=== PATIENT | female | born 1980 | race Caucasian/White ===

== ENCOUNTER 2017-07-15 18:20 | Emergency (ER) | payer BC ==
--- NOTE | 2017-07-15 18:48 | Emergency Department Record ---
History of Present Illness - General Chief Complaint: Chest Pain Stated Complaint: CHEST PAIN FOR A WEEK Time Seen by Provider: 07/15/17 18:42 Source: Patient Mode of Arrival: Ambulatory Limitations: No limitations - History of Present Illness Initial Comments: 36 yo female presents to ED for evaluation of chest pain x 1 week that has been constant. Patient went to her PCP to receive an antibiotic for a dental infection and described her chest pain symptoms, was told to come to ED immediately. Patient denies worsening of her symptoms with exertion, denies fevers, chills, or cough symptoms. Patient denies history of DVT, but does report a history of Lupus and family history of DVT. Patient reports that she went to her chiropractor earlier ion the week and was told her symptoms were not musculoskeletal in nature. MD Complaint: Chest pain Onset/Timin -: Week(s) Pain Location: Substernal Pain Radiation: Neck Severity: Moderate Severity scale (1-10): 6 Quality: Aching Consistency: Constant Improves With: Nothing Worsens With: Nothing Treatments Prior to Arrival: None - Related Data Previous Rx's Medication Instructions Recorded Clindamycin HCl 300 mg PO Q6H #28 capsule 07/15/17 Allergies Allergy/AdvReac Type Severity Reaction Status Date / Time Penicillins Allergy Severe ANAPHYLAXIS Verified 07/15/17 18:41 tramadol HCl [From [facility]] Allergy Intermediate HIVES Verified 07/15/17 18:41 Travel Screening - Travel/Exposure Within Last 30 Days Have you traveled within the last 30 days?: No Review of Systems Constitutional: Denies: Chills, Fever, Malaise, Night sweats Eyes: Denies: Eye discharge, Eye pain ENT: Denies: Congestion, Ear pain, Epistaxis Respiratory: Denies: Cough, Dyspnea Cardiovascular: Reports: Chest pain. Denies: Dyspnea on exertion, Palpitations , Paroxysmal nocturnal dyspnea Endocrine: Denies: Fatigue Gastrointestinal: Denies: Abdominal pain, Constipation, Nausea, Vomiting Genitourinary: Denies: Incontinence, Retention Musculoskeletal: Denies: Arthralgia, Back pain, Gout, Joint swelling Skin: Denies: Bruising, Change in color Neurological: Denies: Abnormal gait, Confusion, Headache, Tingling Psychiatric: Denies: Anxiety Hematological/Lymphatic: Denies: Anemia, Blood Clots Past Medical History - SOCIAL HISTORY Smoking Status: Never smoker Alcohol Use: None Drug Use: None - RESPIRATORY Hx Respiratory Disorders: No - CARDIOVASCULAR Hx Cardio Disorders: No - NEURO Hx Neuro Disorders: No - GI Hx GI Disorders: No - Hx Genitourinary Disorders: No - ENDOCRINE Hx Endocrine Disorders: No - MUSCULOSKELETAL Hx Musculoskeletal Disorders: Yes Hx Fibromyalgia: Yes - PSYCH Hx Psych Problems: No - HEMATOLOGY/ONCOLOGY Hx Hematology/Oncology Disorders: Yes Comment:: Lupus Family Medical History Any Significant Family History?: Yes Hx Cancer: Father, Mother, Grandparents Physical Exam - General General Appearance: Alert, Oriented x3, Cooperative, No acute distress Limitations: No limitations - Head Head exam: Atraumatic, Normocephalic, Normal inspection Head exam detail: negative: Abrasion, Contusion, Pacheco's sign, General tenderness, Hematoma, Laceration - Eye Eye exam: Normal appearance. negative: Conjunctival injection, Periorbital swelling, Periorbital tenderness, Scleral icterus - ENT Ear exam: negative: Auricular hematoma, Auricular trauma Nasal Exam: negative: Active bleeding, Discharge, Dried blood, Foreign body Mouth exam: negative: Drooling, Laceration, Muffled voice, Tongue elevation - Neck Neck exam: Normal inspection. negative: Tenderness, Thyromegaly - Respiratory Respiratory exam: Normal lung sounds bilaterally. negative: Respiratory distress, Rhonchi, Stridor, Wheezes - Cardiovascular Cardiovascular Exam: Regular rate, Normal rhythm, Normal heart sounds - GI/Abdominal GI/Abdominal exam: Soft. negative: Organomegaly, Rebound, Rigid, Tenderness - Rectal Rectal exam: Deferred - exam: Deferred - Extremities Extremities exam: Normal inspection. negative: Calf tenderness, Pedal edema, Tenderness - Back Back exam: Denies: CVA tenderness (R), CVA tenderness (L) - Neurological Neurological exam: Alert, Normal gait, Oriented X3 - Psychiatric Psychiatric exam: Normal affect, Normal mood - Skin Skin exam: Normal color. negative: Abrasion Type of lesion: negative: abrasion Course Vital Signs 07/15/17 18:35 Temperature 98.3 F Pulse Rate 84 Respiratory 18 Rate Blood Pressure 135/95 Pulse Ox 99 - Reevaluation(s) Reevaluation #1: 07/15/17 18:51 EKG: NSR 70 Normal axis, normal intervals No acute ST-T wave changes Reevaluation #2: 07/15/17 19:52 Labs reviewed, D-Dimer 0.53, labs are otherwise grossly unremarkable for an acute process. CTA ordered. Patient was updated on all results and is resting comfortably at this time. Reevaluation #3: 07/15/17 20:13 CTA Chest: Negative for PE/Dissection, reactive lymph nodes present. Reevaluation #4: 07/15/17 22:33 Repeat Troponin has resulted as negative. Patient was updated on all results, has been resting comfortably throughout her ED stay and appears stable for discharge at this time with Clindamycin for her dental infection. Medical Decision Making - Lab Data Result diagrams: 07/15/17 18:57 07/15/17 18:57 Disposition Disposition: Discharge Clinical Impression: Dental infection Chest pain Qualifiers: Chest pain type: unspecified Qualified Code(s): R07.9 - Chest pain, unspecified Disposition: Home, Self-Care Condition: (2) Stable Instructions: Chest Pain (ED) Additional Instructions: Return to ED if your symptoms worsen or if you have any concerns. Clindamycin as directed. Follow-up with your family doctor in 1-3 days as directed. Prescriptions: Clindamycin HCl 300 mg PO Q6H #28 capsule Forms: Patient Portal Access Time of Disposition: 22:34 Quality - Quality Measures Quality Measures: N/A - Blood Pressure Screening Does Patient Have Any of the Following: No Blood Pressure Classification: Hypertensive Reading Systolic Measurement: 135 Diastolic Measurement: 95 Screening for High Blood Pressure: < First Hypertensive BP, F/U Documented > [ G8950] First Hypertensive Follow-up Interventions: Referral to alternative/primary care provider.
[2017-07-15 19:04] LABS: HEMATOCRIT 41.2 % (35.0-47.0); HEMOGLOBIN 14.2 gm/dl (11.6-16.0); MEAN CELL VOLUME 81.7 fl (81-97); MEAN CORPUSCULAR HEMOGLOBIN 28.2 pg (27-33); MEAN CORPUSCULAR HGB CONC 34.5 g/dl (32-36); MEAN PLATELET VOLUME 10.9 fl (7.4-10.4); PLATELET COUNT 236 K/uL (130-400); RED BLOOD COUNT 5.04 M/uL (3.80-5.40); RED CELL DISTRIBUTION WIDTH 12.8 % (11.5-14.5); WHITE BLOOD COUNT W/O DIFF 7.5 K/uL (4.2-12.2)
[2017-07-15 19:14] LABS: PLATELET ESTIMATE NORMAL (NORMAL)
[2017-07-15 19:24] LABS: ALB/GLOB RATIO 1.4 (1.1-1.8); ALBUMIN 4.4 g/dL (4.0-5.0); ALKALINE PHOSPHATASE 60 U/L (35-104); ALT/SGPT 18 U/L (<33); AST/SGOT 19 U/L (10.0-35.0); BLOOD UREA NITROGEN 12 mg/dL (6-20); CREATININE 0.7 mg/dL (0.5-0.9); EST GLOMERULAR FILTRATION RATE > 60 mL/min; GLUCOSE,RANDOM 91 mg/dL (74-109); TOTAL PROTEIN 7.5 g/dL (6.6-8.7)
[2017-07-15 19:43] LABS: CKMB < 1.0 ng/mL (<3.77)
[2017-07-15] MEDS ORDERED: CLINDAMYCIN 150 MG CAP PO ONE (22:02)
--- NOTE | 2017-07-16 12:22 | RADIOLOGY REPORT ---
EXAM: CHEST, TWO VIEWS HISTORY: ACUTE GENERALIZED CHEST PAIN. TECHNIQUE: Two views of the chest were obtained. Comparison: Chest x-ray 01/20/17. FINDINGS: The lungs are clear. The cardiac silhouette, diaphragm, and osseous structures are unremarkable for age. IMPRESSION: NEGATIVE CHEST EXAMINATION. JOB NUMBER: [id number] [facility]
--- NOTE | 2017-07-16 12:27 | CT ANGIOGRAM REPORT ---
EXAM: CTA OF THE CHEST HISTORY: ONE WEEK GENERALIZED CHEST PAIN. TECHNIQUE: Contiguous axial images from the thoracic inlet to the upper abdomen were obtained after the uneventful intravenous administration of 80 ml of Omnipaque 350. Sagittal and coronal two dimensional MIP reformatted images were obtained for better anatomic delineation. Comparison: Chest x-ray 07/15/17. FINDINGS: The lungs are clear. No pleural effusion. The central airways are patent. The heart is not enlarged and there is no pericardial effusion. The pulmonary arteries are well opacified. No filling defect to suggest pulmonary embolism. No thoracic aortic dissection. Small, but conspicuous AP window lymph nodes measuring 10 x 7 mm in transverse dimension. Mildly prominent right hilar lymph node measures 14 x 13 mm. Mildly prominent left infrahilar lymph nodes measure 11 x 11 mm. The upper abdomen is unremarkable. IMPRESSION: 1. NO PULMONARY EMBOLISM OR THORACIC AORTIC DISSECTION. 2. MILDLY PROMINENT HILAR LYMPH NODES OF UNCERTAIN ETIOLOGY OR CLINICAL SIGNIFICANCE. THEY COULD BE REACTIVE IN NATURE. JOB NUMBER: [id number] [facility]
== END 2017-07-15 22:52 | disposition home or self-care (01) ==
LOC: ER 18:20
DX: R07.2 Precordial pain (principal); K04.7 Periapical abscess without sinus
CPT/HCPCS: 99284 ×2; 82553; 80053; 84484; 85379; 85027; 71020; 71275; 93005; 93010; Q9967

== ENCOUNTER 2018-05-31 14:32 | Emergency (ER) | payer BC ==
--- NOTE | 2018-05-31 14:44 | Emergency Department Record ---
History of Present Illness - General Chief complaint: Flank Pain Stated complaint: FLANK PAIN Time Seen by Provider: 05/31/18 14:37 Source: Patient Mode of Arrival: Ambulatory Limitations: No limitations - History of Present Illness Initial comments: The patient is here due to developing some R flank pain today. She has had mild UTI like symptoms with mild dysuria and pelvic cramping for 3 days. Today she developed RUQ pain which radiated to the R flank. She has had nausea but no vomiting. There has been no fever or chills. MD Complaint: Other Onset/Timin -: Days(s) Radiation: R flank - Related Data Previous Rx's Medication Instructions Recorded Sulfamethoxazole/Trimethoprim 1 tab PO BID #20 tab 05/31/18 [Bactrim Ds] Allergies Allergy/AdvReac Type Severity Reaction Status Date / Time Penicillins Allergy Severe ANAPHYLAXIS Unverified 09/07/17 17:34 tramadol HCl [From [facility]] Allergy Intermediate HIVES Unverified 09/07/17 17:34 Review of Systems Constitutional: Denies: Chills, Fever Eyes: Denies: Eye discharge ENT: Denies: Congestion Respiratory: Denies: Cough, Dyspnea Cardiovascular: Denies: Arrhythmia Endocrine: Denies: Fatigue Gastrointestinal: Reports: Abdominal pain, Nausea. Denies: Diarrhea, Vomiting Genitourinary: Denies: Dysuria Musculoskeletal: Denies: Arthralgia Past Medical History - SOCIAL HISTORY Smoking Status: Never smoker Drug Use: None - RESPIRATORY Hx Respiratory Disorders: No - CARDIOVASCULAR Hx Cardio Disorders: No - NEURO Hx Neuro Disorders: No - GI Hx GI Disorders: No - Hx Genitourinary Disorders: No - ENDOCRINE Hx Endocrine Disorders: No - MUSCULOSKELETAL Hx Musculoskeletal Disorders: Yes Hx Fibromyalgia: Yes - PSYCH Hx Psych Problems: No - HEMATOLOGY/ONCOLOGY Hx Hematology/Oncology Disorders: Yes Comment:: Lupus Family Medical History Hx Cancer: Father, Mother, Grandparents Physical Exam - General General Appearance: Alert, Oriented x3, Cooperative, No acute distress - Head Head exam: Atraumatic, Normocephalic, Normal inspection - Eye Eye exam: Normal appearance, PERRL, EOMI - Neck Neck exam: Normal inspection, Full ROM. negative: Tenderness - Respiratory Respiratory exam: Normal lung sounds bilaterally. negative: Respiratory distress - Cardiovascular Cardiovascular Exam: Regular rate, Normal rhythm, Normal heart sounds - GI/Abdominal GI/Abdominal exam: Soft, Normal bowel sounds, Tenderness (mild RUQ tenderness with R CVAT.). negative: Distended, Rebound, Rigid - Extremities Extremities exam: Normal inspection, Full ROM, Normal capillary refill. negative: Tenderness - Neurological Neurological exam: Alert. negative: Motor sensory deficit Course - Reevaluation(s) Reevaluation #1: The patient is doing very well at this time. She denies any pain or discomfort. I did discuss the CT report and the need for F/U. 05/31/18 16:53 Reevaluation #2: I also did discuss with her the mildly elevated LFT's and the need for further evaluation by her PCP. 05/31/18 16:57 Medical Decision Making - Data Complexity MDM Data: Labs Ordered and/or Reviewed, X-Ray Ordered and/or Reviewed - Lab Data Result diagrams: 05/31/18 15:05 05/31/18 15:05 - Radiology Data Radiology results: Report reviewed (CT: Neg for stones or hydro.) Disposition Disposition: Discharge Clinical Impression: Pyelonephritis Disposition: Home, Self-Care Condition: (2) Stable Instructions: Kidney Infection (ED) Additional Instructions: Drink plenty of fluids and take the Bactrim as directed. Use Tylenol or Motrin for pain. Please see your family doctor for recheck next week and to have the elevated LFT's evaluated further. Return to the ER for any fever, vomiting, or increased pain. Prescriptions: Sulfamethoxazole/Trimethoprim [Bactrim Ds] 1 tab PO BID #20 tab Forms: Patient Portal Access Time of Disposition: 16:55 Quality - Quality Measures Quality Measures: N/A - Blood Pressure Screening View Details: Yes Does Patient Have Any of the Following: No Blood Pressure Classification: Pre-Hypertensive BP Reading Systolic Measurement: 120 Diastolic Measurement: 82 Screening for High Blood Pressure: < Pre-Hypertensive BP, F/U Documented > [ G8950] Pre-Hypertensive Follow-up Interventions: Referral to alternative/primary care provider.
[2018-05-31] MEDS ORDERED: 0.9 % SODIUM CHLORIDE 1,000 ML BAG IV ONE (14:48)
[2018-05-31] MEDS ORDERED: ONDANSETRON HCL IV 4 MG/2 ML VIAL IV ONE (14:48)
[2018-05-31 14:49] LABS: URINE APPEARANCE CLEAR; URINE BILIRUBIN NEGATIVE (NEGATIVE); URINE BLOOD LARGE (NEGATIVE); URINE COLOR YELLOW; URINE GLUCOSE (UA) NEGATIVE (NEGATIVE); URINE KETONE NEGATIVE (NEGATIVE); URINE LEUKOCYTE ESTERASE SMALL (NEGATIVE); URINE NITRITE POSITIVE (NEGATIVE); URINE PROTEIN TRACE (NEGATIVE); URINE UROBILINOGEN 0.2 E.U./dL (0.20 - 1.00)
[2018-05-31] MEDS ORDERED: KETOROLAC 30 MG/ML VIAL IVP ONE (14:58)
[2018-05-31 14:59] LABS: URINE BACTERIA FEW; URINE EPITHELIAL CELLS 0 - 2 (FEW); URINE RBC 21 - 35 (NONE SEEN); URINE WBC 16 - 20 (0-2/hpf)
[2018-05-31 15:11] LABS: BASO % 0.2 % (0-6); EOS % 0.8 % (0-6); GRAN % 76.5 % (47-80); HEMATOCRIT 43.8 % (35.0-47.0); HEMOGLOBIN 14.8 gm/dl (11.6-16.0); LYMPH % 13.3 % (16-45); MEAN CELL VOLUME 83.7 fl (81-97); MEAN CORPUSCULAR HEMOGLOBIN 28.3 pg (27-33); MEAN CORPUSCULAR HGB CONC 33.8 g/dl (32-36); MEAN PLATELET VOLUME 10.9 fl (7.4-10.4); MONO % 9.2 % (0-9); PLATELET COUNT 239 K/uL (130-400); RED BLOOD COUNT 5.23 M/uL (3.80-5.40); RED CELL DISTRIBUTION WIDTH 12.6 % (11.5-14.5); WHITE BLOOD COUNT W/O DIFF 9.8 K/uL (4.2-12.2)
[2018-05-31 15:21] LABS: BLOOD UREA NITROGEN 8 mg/dL (6-20); CREATININE 0.9 mg/dL (0.5-0.9); EST GLOMERULAR FILTRATION RATE > 60 mL/min; TOTAL PROTEIN 7.1 g/dL (6.6-8.7)
[2018-05-31 15:24] LABS: GLUCOSE,RANDOM 119 mg/dL (74-109)
[2018-05-31] MEDS ORDERED: CEFTRIAXONE SODIUM 1 GM in 0.9 % SODIUM CHLORIDE 100ML 100 ML IVPB ONE (15:24)
[2018-05-31 15:26] LABS: ALBUMIN 4.4 g/dL (4.0-5.0); ALKALINE PHOSPHATASE 70 U/L (35-104); ALT/SGPT 72 U/L (<33); AST/SGOT 40 U/L (10.0-35.0); LIPASE 22 U/L (13-60)
[2018-05-31 15:28] LABS: BILIRUBIN,DIRECT < 0.2 mg/dL (0-0.3)
== END 2018-05-31 17:04 | disposition home or self-care (01) ==
LOC: ER 14:32
DX: N10 Acute pyelonephritis (principal)
CPT/HCPCS: 74176; 80048; 80076; 81001; 81025; 83690; 85025; 96365; 96375; 99284; J1885; J2405; J7030